=== PATIENT | male | born 1980 | race Caucasian/White ===

== ENCOUNTER 2020-02-02 11:14 | Emergency (ER) | payer OTHER, SELFPAY ==
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
[2020-02-02 11:24] VITALS: BP 145/95; PULSE 105; RESP 14; TEMP 37.1; O2SAT 98
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
== END 2020-02-02 12:09 | disposition home or self-care (01) ==
PROVIDERS: Emergency Provider Nurse Practitioner Family; PCP Family Medicine
DX: S22.42XA Multiple fractures of ribs, left side, initial encounter for closed fracture (principal); Y04.2XXA Assault by strike against or bumped into by another person, initial encounter
CPT/HCPCS: 71046; 71100; 99213; G0463

== ENCOUNTER → 2020-03-03 14:23 | Outpatient (CLI) | payer OTHER, SELFPAY ==
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
== END ==
PROVIDERS: PCP Nurse Practitioner; Visit Provider Nurse Practitioner
DX: S22.42XD Multiple fractures of ribs, left side, subsequent encounter for fracture with routine healing (principal); X58.XXXD Exposure to other specified factors, subsequent encounter
CPT/HCPCS: 71046; 71100